=== PATIENT | female | born 1945 | race Caucasian/White ===

== ENCOUNTER → 2017-04-21 12:05 | Outpatient (CLI) | payer MEDICARE, SELFPAY ==
[2017-04-21 12:59] LABS: Erythrocyte Sedimentation Rate 28 mm/hr (0-30)
[2017-04-21 13:15] LABS: ALB/GLOB Ratio 0.9 RATIO (0.9-2.4); AST(SGOT) 13 U/L (15-37); Alanine Aminotransfer ALT/SGPT 17 U/L (13-56); Albumin, Serum 3.3 g/dL (3.2-5.0); Alkaline Phosphatase 89 U/L (45-117); Anion Gap 8 (5-15); BUN 13 mg/dL (7-18); BUN/Creat Ratio 17.5 RATIO (10-20); Calcium,Total 8.7 mg/dL (8.5-10.1); Chloride 100 mmol/L (98-107); Creatinine, Serum 0.74 mg/dL (0.55-1.02); EST Glomerular Filtration Rate 82 mL/min (>60); Est Glom Filt Rate - Afr Amer 99 mL/min (>60); Globulin 3.5 g/dL (2.2-4.2); Glucose 147 mg/dL (74-106); Potassium 3.8 mmol/L (3.5-5.1); Protein, Total 6.8 g/dL (6.4-8.2); Sodium Level 136 mmol/L (136-145); Thyroid Stim Hormone (TSH) 0.74 uIU/mL (0.358-3.74)
[2017-04-22 09:47] LABS: Vitamin B12 404 pg/mL (211-911)
[2017-04-22 16:10] LABS: PROEL- A/G Ratio 1.3 (0.7-1.7); PROEL- Albumin 3.6 g/dL (2.9-4.4); PROEL- Alpha-1 Globulin 0.2 g/dL (0.0-0.4); PROEL- Alpha-2 Globulin 0.8 g/dL (0.4-1.0); PROEL- Beta Globulin 1.1 g/dL (0.7-1.3); PROEL- Gamma Globulin 0.6 g/dL (0.4-1.8); PROEL- Globulin, Total 2.7 g/dL (2.2-3.9); PROEL- TOTAL PROTEIN 6.3 g/dL (6.0-8.5)
[2017-04-25 16:10] LABS: PROELU- Albumin, Urine 38.9 % (.); PROELU- Alpha-1-Globulin,Ur 7.5 % (.); PROELU- Alpha-2-Globulin,Ur 14.4 % (.); PROELU- Beta Globulin, Ur 19.9 % (.); PROELU- Gamma Globulin, Ur 19.4 % (.); Total Protein, Ur 6.3 mg/dL (Not Estab.)
== END ==
PROVIDERS: Family Provider Family Medicine; PCP Family Medicine; Visit Provider Psychiatry & Neurology Neurology
DX: G62.9 Polyneuropathy, unspecified (principal); R27.0 Ataxia, unspecified
CPT/HCPCS: 36415; 80053; 82140; 82607; 84165; 84166; 84443; 85652

== ENCOUNTER → 2017-07-26 07:50 | Outpatient (CLI) | payer MEDICARE, SELFPAY ==
--- NOTE | 2017-07-26 09:58 | NEURO_ITS ---
NCS and/or EMG Patient Report Ordering Doctor: Vinny Hogan DATE OF SERVICE: 07/26/17 This is a right lower extremity nerve conduction study performed on this 71-year -old female with a history of falls numbness and tingling in her right leg only. She says her right leg gives out. There is no dizziness. Falls have been sporadic for the past year. There is no history of diabetes or stroke but does have a history of back surgery in the past. Right lower extremity sensory and motor nerve conduction studies performed. The sural sensory response is normal. The common peroneal and tibial motor amplitudes are low with reduction of conduction velocity and prolongation of distal latencies. The tibial and common peroneal F-wave latencies are prolonged and the tibial H reflex responses bilaterally are reduced. Impression this is an abnormal nerve conduction study of the right lower extremity consistent with polyneuropathy.
== END ==
PROVIDERS: Family Provider Family Medicine; PCP Family Medicine; Visit Provider Psychiatry & Neurology Neurology
DX: G62.9 Polyneuropathy, unspecified (principal); R20.0 Anesthesia of skin; R20.2 Paresthesia of skin
CPT/HCPCS: 95909